=== PATIENT | female | born 1970 | race Caucasian/White ===

== ENCOUNTER 2021-02-05 09:05 | Inpatient (IN) | payer MEDICAID ==
[2021-02-05] VITALS (10 sets, daily range): BP systolic 109–147; BP diastolic 62–94
--- NOTE | 2021-02-05 10:20 | NUR ---
Patient arrived to room 203 via gurney from [facility]. Patient A&OX4. VSS. No complaints of CP, but does have a headache. The patient, SIRISHA HE, 50 y/o, F admitted by YOAV MERINO MD, was given written information regarding hospital policies, unit procedures and contact persons. Valuables were checked and noted. Will continue to monitor.
[2021-02-05] MEDS ORDERED: VALA500T9 PO (11:24)
[2021-02-05] MEDS ORDERED: AMLO-186 PO (11:24)
[2021-02-05] MEDS ORDERED: CARI350T14 PO (11:24)
[2021-02-05] MEDS ORDERED: TRAZ-123 PO (11:24)
[2021-02-05] MEDS ORDERED: LISI-130 PO (11:24)
[2021-02-05] MEDS ORDERED: ALBU2.5V8 IH (11:24)
[2021-02-05] MEDS ORDERED: ZOLP5TAB5 PO (11:24)
[2021-02-05] MEDS ORDERED: ESTR-113 PO (11:24)
[2021-02-05] MEDS ORDERED: ESOM20CA PO (11:24)
[2021-02-05] MEDS ORDERED: LOPE2TAB27 PO (11:24)
[2021-02-05] MEDS ORDERED: METR-34 PO (11:24)
[2021-02-05] MEDS ORDERED: ASPI-886 PO (11:24)
[2021-02-05] MEDS ORDERED: NALT50TA PO (11:24)
[2021-02-05] MEDS ORDERED: BUTA-177 PO (11:24)
[2021-02-05] MEDS ORDERED: HYDR50TA9 PO (11:24)
[2021-02-05] MEDS ORDERED: RIZA10TA PO (11:24)
[2021-02-05] MEDS ORDERED: PROP20TA PO (11:24)
[2021-02-05] MEDS ORDERED: ALBUTEROL SULFATE 2.5 MG/3 ML NEBU. NEB PRN (11:30)
[2021-02-05] MEDS ORDERED: ZOLPIDEM 5 MG TABLET. PO PRN (11:30)
[2021-02-05] MEDS ORDERED: ASA/APAP/CAFFEINE 250/250/65MG TABLET. PO PRN (11:45)
[2021-02-05] MEDS ORDERED: hydroCHLOROthiazide 25 MG TABLET PO SCH (12:00)
[2021-02-05] MEDS ORDERED: PROPRANOLOL ER 60 MG CAP.SA.24H. PO SCH (12:00)
[2021-02-05] MEDS ORDERED: ASPIRIN ENTERIC COATED 81 MG TABLET.DR. PO SCH (12:00)
[2021-02-05] MEDS ORDERED: valACYclovir 500 MG TABLET. PO SCH (12:00)
[2021-02-05] MEDS ORDERED: ESTRADIOL 1 MG TABLET. PO SCH (12:00)
[2021-02-05] MEDS ORDERED: LISINOPRIL 20 MG TABLET PO SCH (12:00)
[2021-02-05 12:58] LABS: BASO # 0.1 x10^3/uL (0.0-0.2); BASO % 1 % (0-3); EOS # 0.6 x10^3/uL (0.0-0.7); EOS % 3 % (0-3); HEMATOCRIT 43.6 % (36.0-47.0); HEMOGLOBIN 14.7 g/dL (12.0-15.5); LYMPH # 0.9 x10^3/uL (1.0-4.8); LYMPH % 5 % (24-48); MEAN CORPUSCULAR HEMOGLOBIN 31 pg (25-35); MEAN CORPUSCULAR HGB CONC 34 g/dL (31-37); MEAN CORPUSCULAR VOLUME 93 fL (79-100); MONO # 1.8 x10^3/uL (0.0-1.1); MONO % 9 % (0-9); NEUT # 15.7 x10^3/uL (1.8-7.7); NEUT % 82 % (31-73); PLATELET COUNT 210 x10^3/uL (140-400); RED BLOOD COUNT 4.69 x10^6/uL (3.50-5.40); RED CELL DISTRIBUTION WIDTH 13.2 % (11.5-14.5)
[2021-02-05 13:20] LABS: ALBUMIN 3.9 g/dL (3.4-5.0); ALBUMIN/GLOBULIN RATIO 1.2 (1.0-1.7); CALCIUM 8.9 mg/dL (8.5-10.1); GFR 58.2; POTASSIUM 3.8 mmol/L (3.5-5.1); TOTAL BILIRUBIN 0.7 mg/dL (0.2-1.0); TOTAL PROTEIN 7.2 g/dL (6.4-8.2)
[2021-02-05 13:51] LABS: % EOS 5 % (0-5); % LYMPHS 4 % (24-48); % MONOS 7 % (0-10); % SEGS 84 % (35-66); PLT ESTIMATE ADEQUATE (ADEQUATE)
[2021-02-05] MEDS ORDERED: NITROGLYCERIN 200 MCG/2 ML SYRINGE FOR CATH/VASC LAB. IART ONE (14:00)
[2021-02-05] MEDS ORDERED: LIDOCAINE 1% PF 2 ML VIAL. INJ ONE (14:00)
[2021-02-05] MEDS ORDERED: HEPARIN for IV BOLUS 10,000 UNIT/10 ML VIAL. IART ONE (14:00)
[2021-02-05] MEDS ORDERED: fentaNYL PF VIAL 100 MCG/2 ML VIAL IV ONE (14:00)
[2021-02-05] MEDS ORDERED: IODIXANOL 320 MG/ML 100 ML VIAL. IART ONE (14:00)
[2021-02-05] MEDS ORDERED: CYCLOBENZAPRINE 10 MG TABLET. PO SCH (14:00)
[2021-02-05] MEDS ORDERED: MIDAZOLAM HCL/PF 5 MG/5 ML VIAL. IV ONE (14:00)
[2021-02-05] MEDS ORDERED: VERAPAMIL 5 MG/2 ML VIAL. IART ONE (14:00)
[2021-02-05] MEDS ORDERED: CONTRAST GIVEN. MC PRN (14:15)
--- NOTE | 2021-02-05 14:33 | CARD ---
MR#: [id number] Date of Study: 02/05/2021 Ordering Physician: VERA LINO, Referring Physician: VERA LINO, Tech: RT Cameron(R) APPROVED REPORT Technologist: Seble Morales RT(R) Nurse: Christy Martinez RN Procedure(s) performed: MODERATE SEDATION TIME: 20 MINUTES FLUORO TIME: 1.3 MIN DOSE:29.1 GYCM2 CONTRAST: 49CC VISI LHC, Coronary angiography, Left ventriculogram CS Clinical Frailty Scale CS Clinical Frailty Scale: Managing Well Heart Failure Heart Failure: No CASE TECHNIQUE IV conscious sedation was used throughout procedure with appropriate monitoring and was performed in the presence of a registered nurse who was an independent trained observer other than the physician p erforming the procedure. During this case, Fluoroscopy and low osmolar contrast were used for imaging . Specimen(s) Removed: N/A Estimated Blood loss: 15 cc's. PROCEDURE NARRATIVE Clinical information: 50 y.o woman presents to the hospital with unstable angina. Informed consent: Written informed consent was obtained from the patient after adequate discussion of the risks and carmen efits of the procedure. Procedure details: ACCESS: The right wrist was prepped and draped in usual sterile fashion. Under 1% lidocaine local anesthesia a 6 [place] Terumo sheath was placed in the right radial artery via the Seldinger technique. DIAGNOSTIC ANGIOGRAPHY: Right and left coronary arteries were engaged with a 6 [place] TIG catheter. Diagnostic angiography i n multiple views were obtained. Next, a 6 [place] pigtail catheter was placed in the left ventricle a nd a LVEDP was measured. A pullback was performed after left ventriculography. All catheters were e xchanged over J-tip guidewire. FINDINGS: ======= Aorta: 110/80 LVEDP: 7 mmHg Left ventriculogram: Ejection Fraction 60% Normal wall motion without any evidence of aortic or mitral insufficiency. Coronary angiography: LM: Large caliber vessel with normal angiographic appearance LAD: Large caliber vessel with normal angiographic appearance. D1: Small caliber vessel with normal angiographic appearance LCX: Moderate caliber non-dominant vessel with normal angiographic appearance. OM1: Moderate caliber vessel with normal angiographic appearance RCA: Large caliber dominant vessel with normal angiographic appearance. RPDA: Moderate caliber vessel with normal angiographic appearance. CLOSURE: At case completion the right radial sheath was removed and a Terumo radial band was applied with 11 m L of air. Hemostasis was achieved. COMPLICATIONS: No acute complications noted Conclusion 1. Normal left ventricular filling pressures. LVEDP 7 mm Hg 2. Normal LV sysfunction function. EF 60% 3. Normal angioraphic appearance of the coronary arteries. Recommendations Consider non-cardiac causes of dyspnea and chest pain Signed by : Vera Lino, Electronically Approved : 02/05/2021 14:33:04
--- NOTE | 2021-02-05 18:44 | NUR ---
Discharge Note: SIRISHA HE [address] [place] [address] Discharge instructions and discharge home medications reviewed with Patient and a copy given. All questions have been answered and understanding verbalized. The following instructions and handouts were given: discharge instructions, CP education, post cath instructions. Discontinued lines and drains: Peripheral IV intact. Patient discharged to Home or Self Care with Family Member via Ambulated at 1844.
[2021-02-06] MEDS ORDERED: ASPIRIN ENTERIC COATED 81 MG TABLET.DR. PO SCH (08:00)
[2021-02-06] MEDS ORDERED: hydroCHLOROthiazide 25 MG TABLET PO SCH (09:00)
[2021-02-06] MEDS ORDERED: LISINOPRIL 20 MG TABLET PO SCH (09:00)
[2021-02-06] MEDS ORDERED: PROPRANOLOL ER 60 MG CAP.SA.24H. PO SCH (09:00)
[2021-02-06] MEDS ORDERED: ESTRADIOL 1 MG TABLET. PO SCH (09:00)
--- NOTE | 2021-02-06 16:14 | SSS ---
ADMIT DATE: 02/05/2021 HISTORY OF PRESENT ILLNESS: The patient is a 50-year-old female patient who presented to the emergency room of [facility] with a complaint of left side chest pain that she described as squeezing in nature, associated with shortness of breath and orthopnea. She also has a cough that was dry and nonproductive. The pain radiates between the two shoulder blades. She was also diaphoretic, has been nauseous the night before and vomited only in the morning. She was extensively investigated in the emergency room of [facility] and she has had an EKG, which showed that she was in sinus rhythm at a rate of 97 beats per minute with no axis deviation and corrected interval of 474. T-wave inversion in lead [address]-segment elevation or depression. Her chest x-ray showed normal cardiomediastinal silhouette. No focal consolidation, pleural effusion, or pneumothorax. She has had lab work that showed that her white cell count was markedly elevated up to 20,000-21,500 with normal hemoglobin, hematocrit and platelets. Her chemistry was unremarkable. First set of cardiac enzymes showed troponin to be less than 0.017. Her D-dimer was normal at 0.35. Urinalysis was also unremarkable. The leukocyte esterase was negative. She has had 3 sets of cardiac enzymes that ruled out acute myocardial infarction. However, given her significant family history and presentation and the fact that the patient continues to smoke, she was transferred to [facility] and underwent a cardiac catheterization, which showed that the patient has normal left ventricular filling pressures with a left ventricular end-diastolic pressure of 7 mmHg. Normal left ventricular systolic function, ejection fraction 60%, normal angiographic appearance of the coronary arteries and given this finding, a decision was made to discharge the patient home to follow with her primary care physician on the discharge. PHYSICAL EXAMINATION: GENERAL: Prior to discharge, the patient was sitting comfortably in her bed, in no apparent respiratory distress. There was no pallor, jaundice, cyanosis or thyromegaly. No jugular venous distention. No limb edema. VITAL SIGNS: Her heart rate was 96, blood pressure is 121/67, her temperature was 99.3, respiratory rate was 18 and oxygen saturation was 92%. HEAD, EYES, EARS, NOSE, AND THROAT: Normocephalic, atraumatic. NECK: Supple. HEART: Showed normal first and second heart sounds, no gallop, rub or murmur. CHEST: Clear to auscultation. No crepitation or rhonchi. ABDOMEN: Distended, soft, nontender. NEUROLOGIC: She was grossly intact. LABORATORY DATA: Showed a white cell count continued to be somewhat high at 19,000 with hemoglobin of 14.7, hematocrit 44, MCV 93 and platelet count 210,000. Her chemistry showed a serum sodium 143, potassium 3.8, chloride 102, bicarbonate 34, anion gap of 7, BUN 8, creatinine 1, estimated GFR was 58 mL per minute. Her glucose was 103, calcium was 8.9. Total bilirubin, AST, ALT, alkaline phosphatase were normal. Total protein 7.2, albumin was 3.9. Her coronavirus by PCR was negative. MEDICATIONS: She was discharged home to continue on following medications: Albuterol sulfate 2 puffs every 4-6 hours, amlodipine besylate 5 mg once a day, aspirin 81 mg once a day, butalbital, aspirin, caffeine one tablet as needed for headache. She is on Soma 350 mg 4 times a day, Nexium 20 mg twice a day, estradiol 1 mg once a day, hydrochlorothiazide 25 mg once a day, lisinopril 40 mg once a day, loperamide 8 mg daily. She is on Flagyl 500 mg twice a day, naltrexone 50 mg, she takes 3 mg daily. Propranolol 60 mg daily, rizatriptan for Maxalt 10 mg daily as needed for migraine headache, trazodone 100 mg at bedtime, acyclovir 500 mg daily and Ambien 5 mg at bedtime. FINAL DISCHARGE DIAGNOSES: Chest pain with a normal appearance of coronary arteries to consider other causes of dyspnea and chest pain. Other medical problems include hypertension, migraine headache, nephrolithiasis, persistent hematuria, ulcerative colitis and exercise-induced bronchial asthma. We did actually extensive investigation for the reason for her leukocytosis and her urinalysis was essentially unremarkable. Her urine culture grew less than 10,000 colony forming units per mL. Normal genitourinary kennedy, not indicative of infection. Her chest x-ray was unremarkable. I chased it showed normal cardiomediastinal silhouette. No focal consolidation. No pleural effusion, no pneumothorax, no acute osseous process. The patient was advised to continue on all her current medication. Follow her primary care physician and if she spiked a temperature, she needs to go to either her primary care physician or nearest emergency room. GURJIT/VANESSA DR: Gokul TID: [id number]
== END 2021-02-05 18:44 | disposition home or self-care (01) | DRG 287 ==
LOC: 2 NORTH 10:21
PROVIDERS: ADMIT Internal Medicine; ATTEND Internal Medicine
PROC: B2111ZZ Fluoroscopy of Multiple Coronary Arteries using Low Osmolar Contrast (ICD-10-PCS; principal; 2021-02-05)
PROC: B2151ZZ Fluoroscopy of Left Heart using Low Osmolar Contrast (ICD-10-PCS; 2021-02-05)
PROC: 4A023N7 Measurement of Cardiac Sampling and Pressure, Left Heart, Percutaneous Approach (ICD-10-PCS; 2021-02-05)
DX: R07.89 Other chest pain (principal); K51.90 Ulcerative colitis, unspecified, without complications; N02.9 Recurrent and persistent hematuria with unspecified morphologic changes; G43.909 Migraine, unspecified, not intractable, without status migrainosus; I10 Essential (primary) hypertension; J45.909 Unspecified asthma, uncomplicated; N20.0 Calculus of kidney; Z87.891 Personal history of nicotine dependence; Z20.822 Contact with and (suspected) exposure to COVID-19
CPT/HCPCS: 36415; 80053; 84484; 85007; 85025; 87426; 93458; 99152; J1644; J2250; J3010; J3490; Q9967; G0378